=== PATIENT | female | born 1935 | race Caucasian/White ===

== ENCOUNTER 2017-01-04 11:54 | Day surgery (SDC) | payer MEDICARE, BC ==
[~2017-01-04] VITALS: Ht 152.4 cm; Wt 60.8 kg
[~2017-01-04 11:54] MED LIST: CENTTAB9 PO; DORZ1SOL2 OU; DYAZ37.52 PO; PREM0.622 PO; SIMV20 PO; VITA100T5 PO; VITA400C70 PO; ZOLO25TA PO
[2017-01-04] MEDS ORDERED: ePHEDrine/NS 25 MG/5 ML SYR IV ONE (12:00)
[2017-01-04] MEDS ORDERED: PHENYLEPH/NS 1000 MCG/10 ML SYR IV ONE (12:00)
[2017-01-04 13:08] VITALS: BP 120/76; PULSE 65; RESP 17; TEMP 97.9; O2SAT 97
[2017-01-04] MEDS ORDERED: METOPROLOL TARTRATE 25 MG TAB PO PRN (13:15)
[2017-01-04] MEDS ORDERED: POVIDONE IODINE 5% (ANTISEPSIS KIT) 4 APPLICATIONS EACH NARE PRN (13:15)
[2017-01-04] MEDS ORDERED: POVIDONE IODINE 5% (ANTISEPSIS KIT) 4 APPLICATIONS EACH NARE SCH (13:15)
[2017-01-04] MEDS ORDERED: CHLORHEXIDINE GLUCONATE 2 % 1 PACK (2 CLOTHS) TOPICAL SCH (13:15)
[2017-01-04] MEDS ORDERED: MUPIROCIN 2% OINT 1 APPLIC/GM SYR NASAL SCH (13:15)
[2017-01-04] MEDS ORDERED: VANCOMYCIN 1000 MG/NS 250 ML IV SCH ×2 (13:15)
[2017-01-04] MEDS ORDERED: LACTATED RINGER'S 1000 ML IV PRN (13:15)
[2017-01-04] MEDS ORDERED: CHLORHEXIDINE GLUCONATE 2 % 1 PACK (2 CLOTHS) TOPICAL PRN (13:15)
[2017-01-04] MEDS ORDERED: INSULIN HUMAN REGULAR 1,000 UNITS/10 ML VIAL SQ PRN (13:15)
[2017-01-04] MEDS ORDERED: SODIUM CHLORID 0.9% 500 ML IV PRN (13:15)
[2017-01-04] MEDS ORDERED: ESTR.3 PO (13:23)
[2017-01-04] MEDS ORDERED: TRIA37.5 PO (13:23)
[2017-01-04] MEDS ORDERED: SYNT25TA PO (13:23)
[2017-01-04] MEDS ORDERED: DORZ2SOL7 EACH EYE (13:23)
[2017-01-04] MEDS ORDERED: MULTIVITAMIN PO (13:23)
[2017-01-04] MEDS ORDERED: VITA100T65 PO (13:23)
[2017-01-04] MEDS ORDERED: ZOCO20TA PO (13:23)
[2017-01-04] MEDS ORDERED: VITA250T3 PO (13:23)
[2017-01-04] MEDS ORDERED: SERT25TA83 PO (13:23)
[2017-01-04] MEDS ORDERED: PILO1SOL5 EACH EYE (13:23)
[2017-01-04 13:29] LABS: AUTOMATED NEUTROPHIL # 3.6 TH/MM3 (1.8-7.7); BASOPHIL % 0.4 % (0.0-2.0); EOSINOPHIL % 0.7 % (0.0-4.0); HEMATOCRIT 43.8 % (35.0-46.0); HEMO FLAGS DIFF FINAL; LYMPH % 32.2 % (9.0-44.0); MEAN CELL VOLUME 93.6 FL (80.0-100.0); MEAN CORPUSCULAR HEMOGLOBIN 31.7 PG (27.0-34.0); MEAN CORPUSCULAR HGB CONC 33.8 % (32.0-36.0); MONO % 7.7 % (0.0-8.0); PLATELET COUNT 224 TH/MM3 (150-450); RED BLOOD COUNT 4.67 MIL/MM3 (4.00-5.30); RED CELL DISTRIBUTION WIDTH 13.1 % (11.6-17.2); WHITE BLOOD COUNT 6.1 TH/MM3 (4.0-11.0)
[2017-01-04] MEDS ORDERED: NS 1000 ML IV SCH (13:30)
[2017-01-04 13:36] LABS: APTT (PATIENT) 22.7 SEC (24.3-30.1); PROTHROMBIN TIME - PATIENT 10.7 SEC (9.8-11.6)
[2017-01-04] MEDS ORDERED: PROPOFOL 200 MG/20 ML AMP ONE ×2 (13:41→15:22)
[2017-01-04] MEDS ORDERED: MIDAZOLAM HCL 2 MG/2 ML VIAL ONE ×2 (13:43→15:21)
[2017-01-04 13:49] LABS: BICARBONATE 26.8 MEQ/L (21.0-32.0)
[2017-01-04 13:50] LABS: POTASSIUM 3.9 MEQ/L (3.5-5.1)
[2017-01-04] MEDS ORDERED: LIDOCAINE HCL 2% 50 ML VIAL ONE (15:26)
[2017-01-04] MEDS ORDERED: VANCOMYCIN 500 MG VIAL ONE (15:26)
--- NOTE | 2017-01-04 16:49 | CATHPROC ---
[facility] HIS Report Study Information Study Number Admission Scheduled Start Study Start [id number] Jan 04 2017 11:54AM 01/04/2017 Jan 04 2017 2:43PM [place] Service Cardiac Pacer/ICD Admit Source Facility Department Other [facility] - Fire Prevention Captain Physician and Clinical Staff Initial Soren Gregorio Solid Waste Collector Milton Bo,INES Other Anesthesia, OPEN SHANK COVERER Other Maria M Bustillo RN Scrub Yolis Carrasco,RT(R) TECH2 Equipment Time Senior Director Description Size Mfg Part Number Used/Scraped [address] 16:24 [employer] KYAW, HEMOSTAT 1 GRAM Used *[id number] TP-1103 15:42 [employer] SUTURE, STRIP PLUS 1/2" * Used *[id number] 15:42 MEDLINE PACER ADHESIVE, MASTISOL 2/3CC 2/3CC 0523-48 Used 15:42 MEDLINE PACER RUFF, LIMB * 2530 *[id number] Used [id number] 15:42 MEDLINE PACER PACK, PACER CUSTOM * Used *[id number] 15:42 MEDLINE PACER PEN, SKIN DUAL W/ RULER * Used *[id number] PROBE COVER, STERILE [id number] 15:42 [employer] MEDICAL * Used ULTRASOUND W/ GEL *[id number] 15:43 Needle Sponge Count 1 1 Used 15:46 Needle Sponge Count 1 111 Used 15:46 Needle Sponge Count 30 1 Used [id number] *66436 8066-54 *[id number] SUTURE, 0 SILK [CT1] (CO21D), 8pk SUTURE, 3-0 MONOCRYL [SH] (Y316H) SUTURE, 3-0 MONOCRYL [SH] (Y316H) SUTURE, 4-0 MONOCRYL [PS2] (Y496G) SUTURE, 4-0 MONOCRYL [PS2] (Y496G) [id number] 15:42 [facility] BLANKET,WARM AIR CCL * Used *[id number] [facility] PAD, ELECTROSURGICAL 15:42 * [id number] *[id number] Used SURGICAL GROUNDING ORANGE PACEMAKER, ADVISA MRI 16:18 [employer] OEA-DDDR [id number] Used [employer] [id number] 15:42 [employer] MARIANNE. / * Used *[id number] Equipment Model, Serial, Lot Number and Expiration Data Description Model Number Serial Number Lot Number Expiration Date PACEMAKER, ADVISA DR TASHA [id number] 06-12-2018 SUREPRBETO Medication Medication Total Dose (Bolus/Oral) Medication Total Dosage/Unit 2% XYLOCAINE 50 mL Medications (Bolus/Oral) Medication Time Given Dosage/Unit Administered By Reason 2% XYLOCAINE 01/04/2017 4:12:47 PM 50 mL Soren Petersen 50 mL 2% XYLOCAINE given in lab by Soren Petersen via Subcutaneous. Ordered by Soren Petersen. LE FT UPPER CHEST Medication (Drip) Medication Time Given Dosage/Unit Concentration/Unit Diluent (ml) Solution ANCEF 01/04/2017 3:46:58 PM 1 g 1 g ANCEF given in lab by Anesthesia, OPEN SHANK COVERER in Left Antecubital via Peripheral IV. Ordered by Soren Petersen. IV Solutions 01/04/2017 3:36:32 PM 0 mL (IV) 500 NaCl .9 Patient arrived on IV Solutions in Left Antecubital via Peripheral IV. Pump/Drip Flow = 20 ml/hr usin g NaCl .9. Ordered by Soren Petersen. Initial Case Assessment Cardiovascular HR Rhythm NIBP Chest Pain 95 paced 100/55 0 Edema Present Skin color Skin None Normal Warm Dry Circulatory - Right Pulses Dorsalis Pedis Femoral 1 1 Scale (0,1,2,3,4,d) Circulatory - Left Pulses Dorsalis Pedis Femoral 1 1 Scale (0,1,2,3,4,d) Circulatory - Lower Extremities Color Lower Right Color Lower Left Normal Normal Neurological State Oriented to time-place- Alert Moves all extremities person Respiration - General Respiration Rate (B/min) 19 Final Case Assessment Cardiovascular HR Rhythm NIBP Chest Pain 73 paced 114/62 0 Edema Present Skin color Skin None Normal Warm Dry Circulatory - Right Pulses Dorsalis Pedis Femoral 1 1 Scale (0,1,2,3,4,d) Circulatory - Left Pulses Dorsalis Pedis Femoral 1 1 Scale (0,1,2,3,4,d) Circulatory - Lower Extremities Color Lower Right Color Lower Left Normal Normal Neurological State Oriented to time-place- Alert Moves all extremities person Respiration - General Respiration Rate SpO2 (%) O2 (lpm) (B/min) 15 96 4 Chronological Log Time Study Chronological Log 15:20:11 Patient arrived via Bed. 15:35:33 Patient Name, D.O.B, / Armband Verified By R.N. 15:35:34 Consent signed by the physician and the patient and verified by the Fire Prevention Captain staff. 15:35:35 Pre-op and post- op instructions given; patient acknowledges understanding of instructions. 15:36:03 Anesthesia at bedside. Assumes care of patient. 15:36:08 Patient has been NPO for More than 6Hrs. 15:36:09 Skin Breakdown- 15:36:16 Patient Warmer Placed on the Table. 15:36:28 Disposable Defibrillator Pads Placed On Patient. 15:36:31 A # 20 IV was noted in the Antecubital (left). Grade = 0 Patient arrived on IV Solutions in Left Antecubital via Peripheral IV. Pump/Drip Flow = 20 ml/h r using NaCl .9. Ordered 15:36:32 by Soren Petersen. 15:36:34 History and physical on the chart or being dictated. Assessment: Initial Case, HR=95 BPM, Rhythm=paced, XRFO=995/55 mmhg, Chest Pain=0, Edema=None, Color=Normal, Skin = Warm, Dry Right Pulses: Brice Ped=1, Femoral=1 Left Pulses: Brice Ped=1, Femoral=1 15:36:35 Lower Right Extremities: Color=Normal Lower Left Extremities: Color=Normal Neurological: State=Alert, Ox3, [place] Respiration: Resp=19 B/min 15:37:16 Table restraints applied according to hospital policy 15:37:39 Bovie ground pad applied to: 15:38:26 2% CHLORHEXIDINE GLUCONATE WASH AND NASAL SWIPE DONE PRIOR TO PROCEDURE. First Sponge And Instrument Count Done by . 15:38:43 Hypo's: 1, Sponges: 25, Bovie/scratch: 1 Sutures: 12, Blades: 2, Instruments: 26, Syveck Patches: 0 15:46:58 1 g ANCEF given in lab by Anesthesia, OPEN SHANK COVERER in Left Antecubital via Peripheral IV. Ordered b y Soren Petersen. 15:52:33 paged Time Out. Correct patient, procedure, procedure equipment, site and side verified with physicia n present. Time 16:11:31 concurred by MD, individual staff and OPEN SHANK COVERER. Time Out #2 - Consents verified, patient in correct position, all results are labled and displa yed, safety precautions 16:11:41 taken, antibiotics administered. Time out concurred by MD, individual staff and OPEN SHANK COVERER in procedu re 16:12:04 Case Start 50 mL 2% XYLOCAINE given in lab by Soren Petersen via Subcutaneous. Ordered by John Petersen. LEFT 16:12:47 UPPER CHEST 16:13:48 Reference ECG taken 16:14:15 Surgical Incision Made. 16:15:48 A pocket was created at the L Upper Chest. 16:17:08 A device was explanted. 16:17:10 Pocket flushed with antibiotic solution 16:17:17 A PACEMAKER, GIOVANNI SUMMERSSCAN OEA-DDDR was connected and placed in the pocket. 16:23:42 KYAW IN LEFT UPPER POCKET 16:25:38 The pocket was closed. Second Sponge And Instrument Count Done by Milton Bo, RN. 16:25:55 Hypo's: 1, Sponges: 30, Bovie/scratch: 1 Sutures: ~SUTURE~, Blades: 2, Instruments: ~INSTRU~, Syveck Patches: ~SYVECK PATCH~ 16:41:03 Case End The Final Sponge And Instrument Count Done by Milton Bo RN. 16:42:57 Hypo's: 1, Sponges: 30, Bovie/scratch: 1 Sutures: 12, Blades: 2, Instruments: 26, Syveck Patches: ~SYVECK PATCH~ 16:43:50 Steri-strips and a sterile dressing applied to site. Assessment: Final Case, HR=73 BPM, Rhythm=paced, QCMX=689/62 mmhg, Chest Pain=0, Edema=None, Color=Normal, Skin = Warm, Dry Right Pulses: Brice Ped=1, Femoral=1 Left Pulses: Brice Ped=1, Femoral=1 16:47:50 Lower Right Extremities: Color=Normal Lower Left Extremities: Color=Normal Neurological: State=Alert, Ox3, [place] Respiration: Resp=15 B/min, SpO2=96 %, O2=4 lpm 16:48:57 Sterile dressing applied to site 16:48:59 No case complications noted. 16:49:01 Cine recording checked. 16:49:04 Bedside Report will be given. 16:49:08 Patient moved to stretcher End Study - Contrast Media Used In Study Contrast Total Opened (mL) Total Used (mL) Total Wasted (mL) Unspecified 0 0 0 End Study - Radiation Exposure Fluoro Time (minutes) 0.1 End Study - Patient Disposition Complications Transferred To Interventional Outcome No Telemetry Bed successful
--- NOTE | 2017-01-04 23:23 | MP ---
cc: FRANCISCO CALDERÓN MD, HUMAYUN A. M.D. DATE OF SURGERY 01/04/17 PROCEDURE PERFORMED This is a dual-chamber pulse generator change out. INDICATION Pulse generator PREETHI. CONSENT Full informed consent was obtained prior to the procedure. The risks of , bleeding, infection, stroke, foreseen and unforeseen complications were reviewed. The patient fully appeared to understand the risks. PROCEDURAL STATEMENT The patient draped in the routine manner. The left infraclavicular area was carefully infiltrated with lidocaine. Using blunt, sharp and cautery dissection the pulse generator pocket was opened in the usual manner. The patient was given intravenous antibiotics for coverage. The patient had the pulse generator removed. The leads were tested and found to be acceptable. New pulse generator was connected. These were tested. The pulse generator pocket was flushed with antibiotic solution and the pocket was closed in three layers. CONCLUSION Successful change out of dual-chamber Medtronic pacemaker. NOTE The pacemaker was upgraded to an Advisa MRI SureScan pulse generator, however, the leads being non-MRI compatible. The system is non-MRI compatible. Soren Petersen MD, FRCP,[facility] HAJ/CARINA /4:44 PM /11:08 PM [facility] SYSTEMGeovany
--- NOTE | 2017-01-05 17:27 | EKG ---
Date Performed: 01/04/2017 Time Performed: 13:20:54 PTAGE: 81 years EKG: Undetermined rhythm Demand pacing. Pacemaker rhythm - no further analysis Abnormal ECG NO PREVIOUS TRACING DOCTOR: Soren Petersen Interpretating Date/Time 01/05/2017 17:26:11
[2017-01-07] MEDS ORDERED: MULTTAB67 PO (11:55)
== END 2017-01-04 19:01 | disposition home or self-care (01) ==
LOC: HDOC 11:54 → HDIC 11:54 → HDOC 19:01
PROVIDERS: ATTEND Internal Medicine Cardiovascular Disease
DX: Z45.010 Encounter for checking and testing of cardiac pacemaker pulse generator [battery] (principal); I49.5 Sick sinus syndrome; R00.2 Palpitations; I10 Essential (primary) hypertension; I34.0 Nonrheumatic mitral (valve) insufficiency; E78.5 Hyperlipidemia, unspecified; E03.9 Hypothyroidism, unspecified; I65.29 Occlusion and stenosis of unspecified carotid artery; I51.9 Heart disease, unspecified; Z87.891 Personal history of nicotine dependence
CPT/HCPCS: 00400; 33228; 80048; 85025; 85610; 85730; 93005; C1785; J2250; J2370; J3010; J3370